=== PATIENT | female | born 1995 | race Caucasian/White ===

== ENCOUNTER 2017-06-02 11:25 | Emergency (ER) | END 2017-06-02 13:15 | disposition home or self-care (01) ==

== ENCOUNTER 2017-10-07 01:42 | Emergency (ER) | END 2017-10-07 03:19 | disposition home or self-care (01) ==

== ENCOUNTER 2018-01-19 17:32 | Emergency (ER) | END 2018-01-19 19:25 | disposition home or self-care (01) ==